=== PATIENT | male | born 1970 | race Hispanic/Latino ===

== ENCOUNTER 2018-04-25 10:14 | Observation (INO) | payer SELFPAY ==
[2018-04-25 10:38] LABS: #Basophils 0.1 thou/uL (0.0-0.2); #Eosinphils 0.1 thou/uL (0.0-0.7); #Lymphocytes 2.7 thou/uL (1.20-3.40); #Monocytes 0.5 thou/uL (0.11-0.59); #Neutrophils 4.2 thou/uL (1.40-6.50); %Basophils 0.7 % (0.0-1.0); %Lymphocytes 35.8 % (21.0-51.0); %Monocytes 6.4 % (0.0-10.0); %Neutrophils 55.2 % (42.0-75.0); Hemoglobin 14.2 g/dL (14.0-18.0); Mean Corpuscular HGB CONC 32.6 g/dL (32.0-36.0); Mean Corpuscular Hemoglobin 29.7 pg (27.0-31.0); Mean Corpuscular Volume 91.1 fL (78.0-98.0); Mean Platelet Volume 6.9 fL (7.4-10.4); Platelet Count 313 thou/uL (130-400); RBC Distribution Width 12.2 % (11.5-14.5); Red Blood Cell (RBC) Count 4.78 mill/uL (4.70-6.10); White Blood Cell (WBC) Count 7.6 thou/uL (4.8-10.8)
--- NOTE | 2018-04-25 10:44 | RAD ---
PORTABLE CHEST: History: Chest pain. FINDINGS: The lung cordero are clear. Vascular markings are normal. Heart and mediastinum unremarkable. IMPRESSION: No acute abnormality. POS: [facility]
[2018-04-25] MEDS ORDERED: Nitroglycerin 2% Ointment 1 INCH/1 GM Packet ONE (10:56)
[2018-04-25 10:59] LABS: ALT (SGPT) 11 U/L (8-55); AST (SGOT) 14 U/L (5-34); Albumin 4.3 g/dL (3.5-5.0); Alkaline Phosphatase 76 U/L (40-150); Anion Gap 13 mmol/L (10-20); BUN (Urea Nitrogen) 8 mg/dL (8.9-20.6); Bilirubin, Total 0.4 mg/dL (0.2-1.2); CK (CPK) 114 U/L (30-200); Calc. Creatinine Clearance 0 mL/min (70-130); Calcium 9.2 mg/dL (7.8-10.44); Carbon Dioxide 20 mmol/L (22-29); Chloride 110 mmol/L (98-107); Estimated GFR-MDRD Greater than 90; Globulin 3.1 g/dL (2.4-3.5); Glucose 111 mg/dL (70-105); Lipase 24 U/L (8-78); Protein, Total 7.4 g/dL (6.0-8.3); Sodium 139 mmol/L (136-145)
[2018-04-25 11:02] LABS: CKMB 1.6 ng/mL (0-6.6); Troponin I Less than 0.010 ng/mL (< 0.028)
[2018-04-25 11:04] LABS: PLT Morphology Comment Appears Adequate; RBC Morphology Normal
[2018-04-25] MEDS ORDERED: cloNIDine 0.1 MG TAB PO PRN (12:17)
[2018-04-25] MEDS ORDERED: Nitroglycerin 0.4 MG TAB (25 Tab Bottle) SL PRN (12:17)
[2018-04-25] MEDS ORDERED: Calcium Carbonate 500 MG ChewTAB PO PRN (12:17)
[2018-04-25] MEDS ORDERED: Loratadine 10 MG TAB PO PRN (12:17)
[2018-04-25] MEDS ORDERED: traMADol HCl 50 MG TAB PO PRN (12:17)
[2018-04-25] MEDS ORDERED: Mag-Al 1200 mg/1200 mg/30 ML UDCUP PO PRN (12:17)
[2018-04-25] MEDS ORDERED: hydrALAZINE 20 MG/ML VIAL SLOW IVP PRN (12:17)
[2018-04-25] MEDS ORDERED: Ondansetron HCl/PF 4 MG/2 ML Vial IVP PRN (12:17)
[2018-04-25] MEDS ORDERED: Senokot 8.6 MG TAB PO PRN ×2 (12:17)
[2018-04-25] MEDS ORDERED: Bisacodyl 5 MG TAB PO PRN ×2 (12:17)
[2018-04-25] MEDS ORDERED: Diabetic Tussin 200 MG/10 ML UDCUP PO PRN (12:17)
[2018-04-25] MEDS ORDERED: Lorazepam 1 MG TAB PO PRN (12:17)
[2018-04-25] MEDS ORDERED: Benzonatate 100 MG CAP PO PRN (12:17)
[2018-04-25] MEDS ORDERED: HYDROcodone/Acetaminophen 5/325 mg Tablet PO PRN (12:17)
[2018-04-25 12:44] LABS: Acetaminophen Less than 6.0 mcg/mL (10.0-30.0); Alcohol Less than 10 mg/dL (Less than 10); Salicylate Less than 8.0 mg/dL (15.0-30.0)
[2018-04-25 13:02] LABS: Bilirubin Negative (Negative); Blood, Urine Negative (Negative); Clarity CLEAR (Clear); Glucose, Urine (Dipstick) Negative (Negative); Leukocyte Negative (Negative); Nitrite Negative (Negative); Protein, Urine (Dipstick) Negative (Neg-Trace); Specific Gravity, Urine 1.012 (1.002-1.036); Urobilinogen 0.2 mg/dL (0.2-1.0); pH, Urine 6.5 (5.0-9.0)
[2018-04-25 13:11] LABS: Amphetamine Not Detected (NotDetected); Barbiturates Screen Not Detected (NotDetected); Benzodiazepine Screen Not Detected (NotDetected); Cocaine Metabolite Screen Not Detected (NotDetected); Medtox Control Line Valid? VALID (VALID); Medtox Reader # READER 4; Methadone Not Detected (NotDetected); Methamphetamine Not Detected (NotDetected); Opiate Screen Not Detected (NotDetected); Oxycodone Screen Not Detected (NotDetected); Phencyclidine (PCP) Not Detected (NotDetected); THC/Cannabinoid Screen Not Detected (NotDetected); Tricyclic Screen Not Detected (NotDetected)
[2018-04-25] MEDS ORDERED: Acetaminophen 325 MG TAB ONE (13:14)
[2018-04-25 13:50] VITALS: BMI 34.7
[2018-04-25 13:53] LABS: Troponin I Less than 0.010 ng/mL (< 0.028)
[2018-04-25] MEDS ORDERED: Amlodipine 10 MG TAB PO SCH (16:45)
--- NOTE | 2018-04-25 17:10 | NM ---
NUCLEAR MEDICINE CARDIAC PERFUSION EXAMINATION 04/25/18 COMPARISON: None. HISTORY: 48-year-old male with chest pain and hypertension. TECHNIQUE: A single day nuclear medicine cardiac perfusion examination was performed. Rest images were obtained using 10 millicuries of technetium 99m Sestamibi. Stress images were obtained using 27 millicuries of technetium 99m Sestamibi at peak of exercise on a treadmill using a Lamine protocol. The patient achi eved 88% maximum predicted heart rate. FINDINGS: Tomographic images show no fixed or reversible perfusion defects. Gated images show normal wall motio n with an ejection fraction of 55%. ROMÁN is 113 mL. LHR is 0.2. TID is 0.9. IMPRESSION: No evidence of ischemia. POS: [facility]
--- NOTE | 2018-04-25 17:16 | HP ---
DATE OF ADMISSION: 04/25/2018 PRIMARY CARE PHYSICIAN: None. The patient has not seen a PCP in 4 years. CHIEF COMPLAINT: Chest pain, arm numbness, leg numbness and headache. HISTORY OF PRESENT ILLNESS: Mr. Piña is a pleasant 48-year-old male with past medical histo ry of hypertension as far as he could tell, presented to the ER with above-mentioned complaint. Hist ory is mainly obtained by the patient himself. He was seen in the nuclear medicine suite. Mr. Piña reports that he was incarcerated and got out of the longterm about 4 years ago. He was told blu t he has high blood pressure, high cholesterol, and borderline diabetes, but since he got out of the longterm, he has not taken any medications. He has been feeling poorly on and off, but the symptoms have worsened over the course of last week or so. His symptoms consist of sharp chest pain located in th e center of the chest and his arm goes numb. It is associated with headache, blurred vision, neck pa in as well as facial flushing. He also notices numbness of his left leg. He denies any shortness of breath, dizziness or diaphoresis with these symptoms. At some of these episodes, he went to [facility] and got his blood pressure checked and was found to be elevated all the time. Mostly, his diastolic blo od pressure in the 100s and systolic blood pressure in 150s to 160s range. He denies any recent illn esses. He denies any fever or chills. He does report that he has been using drug since he was 10 ye ars of age as well as alcohol, but he has been sober for the last month. He usually used to use K2 with alcohol, but he has not had any drink or any drugs for the last month. He has been to rehab in the past as well. In the ER, upon presentation, he was hypertensive with the blood pressure of 168/123. He underwent g eneral workup including a 12-lead EKG, which was unremarkable and cardiac enzymes which are normal. Chest x-ray showed no widened mediastinum, no infiltrate, no free air. He was given aspirin, Tylenol , nitroglycerin paste and IV fluids and is now being admitted for further workup to rule out ACS. PAST MEDICAL HISTORY: 1. Hypertension. 2. Dyslipidemia. 3. Borderline diabetes. PAST SURGICAL HISTORY: None, reviewed with the patient. PSYCHIATRIC HISTORY: Anxiety and depression. SOCIAL HISTORY: Former drug abuser and alcohol abuser, stopped about a month ago. No history of tob acco abuse. FAMILY HISTORY: Significant for one of his uncles having a cardiac event and his mother was insulin- dependent diabetic. CURRENT MEDICATIONS: None. ALLERGIES: None. REVIEW OF SYSTEMS: A 12-point review of systems was done, it is negative except for those mentioned in the history and physical. Constitutional: Weight loss or gain, ability to conduct usual activities. Skin: Rash, itching. Eyes: Double vision, pain. ENT/Mouth: Nose bleeding, neck stiffness, pain, tenderness. Cardiovascular: Palpitations, dyspnea on exertion, orthopnea. Respiratory: Shortness of breath, wheezing, cough, hemoptysis, fever or night sweats. Gastrointestinal: Poor appetite, abdominal pain, heartburn, nausea, vomiting, constipation, or diarrhea. Genitourinary: Urgency, frequency, dysuria, nocturia. Musculoskeletal: Pain, swelling. Neurologic/Psychiatric: Anxiety, depression. Allergy/Immunologic: Skin rash, bleeding tendency. LABORATORY DATA: CBC unremarkable. Serum chemistry show chloride 110, bicarbonate 20, troponin less than 0.010 x2, CK-MB 1.6. BNP less than 10. Urinalysis is unremarkable. Urine drug screen negativ e. Plasma alcohol less than 10. Chest x-ray by my review has no evidence to suggest acute infiltrat e, edema or effusion. A 12-lead EKG by my review shows normal sinus rhythm without any acute ST or T -wave changes. PHYSICAL EXAMINATION: VITAL SIGNS: Most recent vital signs: Temperature 97.9, pulse of 81, respirations 18, saturating 97 % on room air, blood pressure 169/97. GENERAL: No acute distress. Awake, alert, oriented x3, sitting up in a chair in the nuclear medicin e stress test suite. Awake, alert, oriented x3, very pleasant. HEENT: Mucous membrane is moist and pink. No oropharyngeal exudate or erythema. NECK: Supple without any lymphadenopathy, JVD or bruit. CHEST: Clear to auscultation without any wheezing, rales or rhonchi. CARDIAC: Rate and rhythm is regular without any murmur, rubs or gallops. ABDOMEN: Soft, nontender, nondistended with positive bowel sounds. EXTREMITIES: Free of any cyanosis, clubbing, or edema. NEUROLOGIC: Nonfocal. SKIN: Free of any rashes or bruises. Feels warm and dry to touch. PSYCHIATRIC: Normal affect. IMPRESSION AND PLAN: 1. Chest pain, likely secondary to uncontrolled hypertension. Acute coronary syndrome will also nee d to be ruled out. We will go ahead and perform the stress test and continue to trend serial cardiac enzymes. We will start him on aspirin every day and check lipid panel. Add statin if his lipids ar e elevated. We will start him on antihypertensives including Norvasc and lisinopril at this time as most of his symptoms are likely due to uncontrolled hypertension. We will titrate the medications ba sed on his response. 2. Uncontrolled hypertension. As above, we will start him on antihypertensive and we will provide h im with prescriptions after titration of the medicines based on his response. 3. Drug abuse. The patient is sober for one month now. He is encouraged to hold off and he is eage r to do so. 4. History of alcohol abuse. No evidence of any chronic alcoholic liver disease at this time. 5. Add deep venous thrombosis and gastrointestinal prophylaxis. 6. Family history of diabetes mellitus and his personal history of borderline diabetes. We will christoph ck hemoglobin A1c and treat accordingly. DISPOSITION: Mr. Piña is currently being admitted to rule out acute coronary syndrome. He will be a dmitted to observation status. Further management will depend upon his clinical course.
[2018-04-25 17:18] LABS: Hemoglobin A1c 5.8 % (4.0-6.0)
[2018-04-25 17:34] LABS: Troponin I Less than 0.010 ng/mL (< 0.028)
[2018-04-25] MEDS: Famotidine 20 MG TAB PO SCH (20:42)
[2018-04-25] MEDS: Acetaminophen 325 MG TAB PO PRN (20:42)
[2018-04-25] MEDS: Lisinopril 5 MG TAB PO SCH (20:43)
[2018-04-26 00:21] VITALS: TEMP 98.1
[2018-04-26 04:36] LABS: #Eosinphils 0.3 thou/uL (0.0-0.7); #Lymphocytes 3.1 thou/uL (1.20-3.40); #Monocytes 0.7 thou/uL (0.11-0.59); %Basophils 0.1 % (0.0-1.0); %Eosinophils 3.1 % (0.0-10.0); %Lymphocytes 33.8 % (21.0-51.0); %Monocytes 7.5 % (0.0-10.0); %Neutrophils 55.6 % (42.0-75.0); Hemoglobin 16.2 g/dL (14.0-18.0); Mean Corpuscular HGB CONC 34.4 g/dL (32.0-36.0); Mean Corpuscular Hemoglobin 31.2 pg (27.0-31.0); Mean Corpuscular Volume 90.6 fL (78.0-98.0); Mean Platelet Volume 6.5 fL (7.4-10.4); Platelet Count 372 thou/uL (130-400); RBC Distribution Width 12.2 % (11.5-14.5); Red Blood Cell (RBC) Count 5.19 mill/uL (4.70-6.10)
[2018-04-26 04:52] LABS: Anion Gap 13 mmol/L (10-20); BUN (Urea Nitrogen) 8 mg/dL (8.9-20.6); Calc. Creatinine Clearance 120 mL/min (70-130); Calcium 10.3 mg/dL (7.8-10.44); Carbon Dioxide 26 mmol/L (22-29); Chloride 108 mmol/L (98-107); Estimated GFR-MDRD 89; Glucose 126 mg/dL (70-105); Potassium 4.2 mmol/L (3.5-5.1); Sodium 143 mmol/L (136-145)
[2018-04-26] MEDS: Acetaminophen 325 MG TAB PO PRN (05:27)
[2018-04-26 07:53] VITALS: BP 135/91
[2018-04-26] MEDS ORDERED: Aspirin 325 mg Enteric Coated Tablet PO SCH (09:00)
[2018-04-26] MEDS ORDERED: Enoxaparin Sodium 40 MG/0.4 ML SYRINGE SC SCH (09:00)
[2018-04-26] MEDS ORDERED: Amlodipine 10 MG TAB PO SCH (09:00)
[2018-04-26] MEDS: Lisinopril 5 MG TAB PO SCH (09:26)
[2018-04-26] MEDS: Famotidine 20 MG TAB PO SCH (09:26)
--- NOTE | 2018-04-26 19:31 | DIS ---
DATE OF ADMISSION: 04/25/2018 DATE OF DISCHARGE: 04/26/2018 CONDITION AT THE TIME OF DISCHARGE: Stable and improved. DISCHARGE DISPOSITION: Home. DISCHARGE DIAGNOSES: 1. Chest pain, atypical, likely secondary to uncontrolled hypertension. 2. Hypertensive urgency. 3. Dyslipidemia. DISCHARGE MEDICATIONS: Aspirin 81 mg daily, lisinopril 5 mg p.o. b.i.d. and amlodipine 10 mg daily. DISCHARGE FOLLOWUP: With [facility]. PROCEDURES DONE IN THE HOSPITAL: Nuclear medicine stress test, which is negative for any reversible or fixed ischemia. TID is 0.9. Ejection fraction is 55%. HISTORY OF PRESENTING ILLNESS: Mr. Piña is a very pleasant 48-year-old male with past medical histor y of hypertension who has not taken any medication for the last 4 years and has not seen a physician in the last 4 years, came to the emergency room with complaints of chest pain. He described the pain as in the center of the chest with the arm numbness and headache and flushing. He was found to be q uite hypertensive upon presentation. His EKG and cardiac enzymes were unremarkable at presentation. He was admitted for further workup and rule out acute coronary syndrome. Please see admission histo ry and physical for further details. HOSPITAL COURSE: Serial cardiac enzymes were trended and were negative. Lipid panel was checked and his triglyceride is mildly elevated at 156 with normal cholesterol. His LDL is very high at 133. H is hemoglobin A1c was also checked given his family history of diabetes mellitus. It was 5.8. He un derwent a nuclear medicine stress test which was negative for any ischemia or scar. EF adequate. He was started on antihypertensives as above. His blood pressure responded very well for it. He was discharged on Norvasc and lisinopril with new prescriptions. He is instructed to follow up with [facility] and he has an upcoming appointment already in about 2 weeks. Dietary discretion and Medi cation compliance was advised and he verbalized understanding. He was seen and examined prior to discharge. PHYSICAL EXAMINATION: VITAL SIGNS: Blood pressure 135/91, heart rate 92, respirations 20, saturating 97% on room air, temp erature 98.1. GENERAL: No acute distress. CHEST: Clear to auscultation bilaterally. HEART: Rate and rhythm is regular. FOLLOWUP: He will follow up with PCP as soon as possible.
--- NOTE | 2018-05-03 11:34 | EKG ---
Test Reason : Blood Pressure : / mmHG Vent. Rate : 084 BPM Atrial Rate : 084 BPM P-R Int : 158 ms QRS Dur : 086 ms QT Int : 352 ms P-R-T Axes : 048 002 021 degrees QTc Int : 415 ms Normal sinus rhythm with sinus arrhythmia Normal ECG Confirmed by BENJI WASHBURN, GREGORY ([id number]), industrial editor VICKI PÉREZ ([id number]) on 05/03/2018 11:33:50 AM Referred By: Confirmed By:GREGORY LEBLANC MD
== END 2018-04-26 09:56 | disposition home or self-care (01) ==
LOC: ERS 10:14 → INTOOBSV 13:39 → 2SW 13:39
PROVIDERS: ADMIT Internal Medicine; ATTEND Internal Medicine
DX: R07.89 Other chest pain (principal); I16.0 Hypertensive urgency; E78.5 Hyperlipidemia, unspecified; Z79.82 Long term (current) use of aspirin; Z79.899 Other long term (current) drug therapy; Z88.0 Allergy status to penicillin
CPT/HCPCS: 36415; 71045; 78452; 80048; 80053; 80061; 80306; 80307; 81003; 82550; 82553; 83036; 83690; 83880; 84484; 85025; 93005; 93017; 96360; A9500; G0378; J1650